=== PATIENT | male | born 1970 | race Caucasian/White ===

== ENCOUNTER 2022-03-22 07:13 | Day surgery (SDC) | payer OTHER ==
[2022-03-22] MEDS ORDERED: Propofol 200 MG/20 ML SDV IV ONE (07:14)
[2022-03-22] MEDS ORDERED: Lactated Ringers 1,000 ML IV SCH (07:20)
[2022-03-22] MEDS ORDERED: Sodium Chloride 0.9% 10 ML Syringe FLUSH PRN (07:20)
[2022-03-22] MEDS ORDERED: Simethicone Drops 40 MG/0.6 ML 30 ML Bottle ONE (09:36)
== END 2022-03-22 10:17 | disposition home or self-care (01) ==
LOC: FB.SDS 07:13
PROVIDERS: ATTEND Surgery
DX: Z12.11 Encounter for screening for malignant neoplasm of colon (principal); K42.0 Umbilical hernia with obstruction, without gangrene; K40.90 Unilateral inguinal hernia, without obstruction or gangrene, not specified as recurrent; Z79.899 Other long term (current) drug therapy; K21.9 Gastro-esophageal reflux disease without esophagitis; E78.5 Hyperlipidemia, unspecified; Z98.890 Other specified postprocedural states
CPT/HCPCS: 00812-QZ; A9270-GY; J2704; J7120

== ENCOUNTER 2023-10-30 11:42 | Emergency (ER) | payer OTHER ==
[2023-10-30] MEDS ORDERED: Lidocaine 1% 5 ML VIAL INFILT ONE (11:43)
== END 2023-10-30 12:48 | disposition home or self-care (01) ==
LOC: FB.ED 11:42
DX: S61.411A Laceration without foreign body of right hand, initial encounter (principal); E78.00 Pure hypercholesterolemia, unspecified; E66.9 Obesity, unspecified; Z68.33 Body mass index [BMI] 33.0-33.9, adult; Z79.899 Other long term (current) drug therapy; W23.1XXA Caught, crushed, jammed, or pinched between stationary objects, initial encounter
CPT/HCPCS: 12002; 99282